=== PATIENT | male | born 1935 | race Caucasian/White ===

== ENCOUNTER 2020-01-03 13:43 | Inpatient (IN) | payer MEDICARE, BC ==
[~2020-01-03] VITALS: Ht 165.1 cm; Wt 71.2 kg
--- NOTE | 2020-01-03 13:46 | NUR ---
PT BROUGHT IN BY [facility] ABLE TO AMBULATE AND TRANSFER TO [facility] , [place] AOX3, ABLE TO SPEAK CLEAR COMPLETE SENTENCES PT IS HERE ON 5150 H DUE TO SI WITH PLAN PT IS CURRENTLY CALM AND COMPLIANT VERY PLEASANT AND COOPERATIVE ERMD AT BEDSIDE FOR HX AND PHYSICAL MONITORED ACCORDINGLY
--- NOTE | 2020-01-03 13:47 | NUR ---
PT DENIES SI/HI CONCERNS AT THIS TIME FREQUENT VISUAL CHECKS DONE SI PREC ON STANDBY
--- NOTE | 2020-01-03 13:49 | NUR ---
PT IS MEDICALLY CLEARED CALL FOR BED DONE PT OK TO ADMIT TO MHU RM 139B DX: FOR MEDICAL CLEARANCE
[2020-01-03] MEDS ORDERED: ATOR10TA PO (14:05)
[2020-01-03] MEDS ORDERED: [UNRECOGNIZED DRUG - CODE] PO (14:05)
--- NOTE | 2020-01-03 14:16 | NUR ---
HAND OFF AND SBAR GIVEN TO BONNIE TOLEDO ([facility])
--- NOTE | 2020-01-03 14:50 | NUR ---
transported to floor Pt admitted to MHU under Fina (Epic) and Reji (Psyche)
[2020-01-03] MEDS ORDERED: MAG HYDROX/AL HYDROX/SIMETH 30 ML LIQUID UDC PO PRN (15:30)
[2020-01-03] MEDS ORDERED: LORAZEPAM 1 MG TABLET PO PRN (15:30)
[2020-01-03] MEDS ORDERED: BLOOD SUGAR DIAGNOSTIC 1 EACH STRIP VI ONE (15:30)
[2020-01-03] MEDS ORDERED: MAGNESIUM HYDROXIDE 30 ML LIQUID UDC PO PRN (15:30)
[2020-01-03] MEDS ORDERED: ACETAMINOPHEN 325 MG TABLET PO PRN (15:30)
[2020-01-03] MEDS ORDERED: TEMAZEPAM 7.5 MG CAPSULE PO PRN (15:30)
--- NOTE | 2020-01-03 15:38 | NUR ---
intake called and states: pt to be admitted under [facility]
[2020-01-03 15:51] VITALS: BP 143/89
--- NOTE | 2020-01-03 17:35 | NUR ---
GPS ADMISSION NOTES: ADMITTING THIS 84Y MALE PATIENT , ON 5150 HOLD FOR DTS AND DTO, PATIENT CALM AND COOPERATIVE UPON ARRIVAL, ABLE TO SIGN DOCUMENTS , PATIENT IS AOX3-4, AMBULATORY, DENIES ANY DISCOMFORT, VS WNL, PATIENT WAS ORIENTED IN THE UNIT , PATIENT IS GUARDED AT THIS TIME, VERBALIZES THAT HE WILL FOLLOW WHATEVER NEEDS TO BE DONE, ADVISEMENT WAS GIVEN , SEEN AND EXAMINED BY DR. GILMAN, WITH ORDERS MADE AND CARRIED OUT,
[2020-01-03] MEDS: SERTRALINE HCL 50 MG TABLET PO SCH (17:43)
[2020-01-03] MEDS ORDERED: AMLO10TA7 PO (17:58)
[2020-01-03] MEDS: ATORVASTATIN 10 MG TABLET PO SCH (18:17)
[2020-01-03 20:49] VITALS: BP 128/85
[2020-01-04 07:30] VITALS: BP 137/78
[2020-01-04] MEDS ORDERED: AMLODIPINE PO SCH (09:00)
[2020-01-04] MEDS ORDERED: ATORVASTATIN PO SCH (09:00)
[2020-01-04] MEDS ORDERED: [UNRECOGNIZED DRUG - OTHER] PO SCH (09:00)
[2020-01-04] MEDS: AMLODIPINE 10 MG TABLET PO SCH (09:01)
[2020-01-04] MEDS: SERTRALINE HCL 50 MG TABLET PO SCH (09:01)
[2020-01-04 10:02] LABS: THYROID STIMULATING HORMONE 1.641 mIU/mL (0.358-3.740)
--- NOTE | 2020-01-04 10:30 | NUR ---
Social Work Initial Discharge Plan: Patient currently resides at [address] [place] [address]; ([phone]) with Akiko. Per patient, upon discharge he would want to return back home. workers' compensation commissioner will work with the patient and the MD regarding appropriate discharge planning. workers' compensation commissioner will form a safe and proper discharge.
--- NOTE | 2020-01-04 11:30 | NUR ---
Social Work Family Contact: farmworker grain contacted patient's Akiko Grant ([phone]) to gather collateral but was unable to reach. This proposal writer left a voicemail to call this proposal writer back.
[2020-01-04 16:00] VITALS: BP 104/54
[2020-01-04] MEDS: ATORVASTATIN 10 MG TABLET PO SCH (17:40)
[2020-01-04 20:55] VITALS: BP 122/79
[2020-01-05 07:30] VITALS: BP 130/79
[2020-01-05] MEDS: AMLODIPINE 10 MG TABLET PO SCH (08:11)
[2020-01-05] MEDS: SERTRALINE HCL 50 MG TABLET PO SCH (08:11)
--- NOTE | 2020-01-05 11:54 | NUR ---
Social Work Family Contact: beadworker attempted to contact patient's Akiko Grant ([phone]), but was unavailable. This automatic typewriter inspector contacted patient's Brother Dwayne ([phone]) and left a voicemail.
--- NOTE | 2020-01-05 14:14 | NUR ---
Social Work Family Contact: relay worker spoke with patient's Akiko Grant ([phone]) who stated that upon discharge patient is welcomed back home and stated that his brother Dwayne ([phone]) will provide transportation upon discharge.
--- NOTE | 2020-01-05 14:28 | NUR ---
Social Work Note: plant production worker contacted [place] [employer] ([phone]) and spoke with embossing press operator Chen who stated that [facility] Puma #[id number] reported that all of the guns have been removed from the house.
--- NOTE | 2020-01-05 15:07 | NUR ---
Social Work Individual Therapy Note: utility worker film processing met with patient for brief counseling. utility worker film processing assessed for patients level of suicidality. Patient denies SI and stated that he was never suicidal and that he prays when he has issues. Patient stated that he "loves his life". This typewriter mechanic encouraged patient to speak to someone if he were to have suicidal thoughts. This typewriter mechanic encouraged to notify charge nurse or to this typewriter mechanic. This typewriter mechanic encouraged patient to talk to a family member as well.
[2020-01-05 16:00] VITALS: BP 135/83
[2020-01-05] MEDS: ATORVASTATIN 10 MG TABLET PO SCH (17:26)
[2020-01-05 20:00] VITALS: BP 142/83
--- NOTE | 2020-01-05 22:00 | NUR ---
received to care, lying in bed, pleasant upon approach. interacts minimally with peers, but able to make his needs known, to staff. denies any SI, or desire to harm others. as of 2199, he appears to be asleep. no distress noted. will continue to monitor closely.
--- NOTE | 2020-01-06 06:00 | NUR ---
slept 7.5 hours, total. continues to sleep. no distress noted.
[2020-01-06 07:30] VITALS: BP 125/84
[2020-01-06] MEDS: AMLODIPINE 10 MG TABLET PO SCH (09:44)
[2020-01-06] MEDS: SERTRALINE HCL 100 MG TABLET PO SCH (09:44)
--- NOTE | 2020-01-06 09:47 | NUR ---
Social Work Note/Substance Abuse Intervention: Patient was provided with a brief substance abuse intervention and referred to [facility] ([phone]), [facility] ([phone]), and [facility] ([phone]).
--- NOTE | 2020-01-06 11:00 | NUR ---
Social Work Family Contact: automobile body worker spoke with patient's Akiko Grant ([phone]) who stated that she would want to speak to the psychiatrist. This designer writer notified Dr. Dobson at 11AM.
--- NOTE | 2020-01-06 15:06 | NUR ---
Social Work Individual Therapy Note: collection systems worker met with patient for brief counseling. collection systems worker assessed for patients level of suicidality. Patient denies SI. He stated that he does not want to talk to this promotion writer and stated that he was never SI. This promotion writer also encouraged patient to alert either this promotion writer or the nursing staff.
[2020-01-06 15:20] VITALS: BP 118/60
[2020-01-06] MEDS: ATORVASTATIN 10 MG TABLET PO SCH (18:22)
[2020-01-06 20:06] VITALS: BP 139/83
--- NOTE | 2020-01-07 06:00 | NUR ---
slept 5.5 hours, total. is now awake. assisted with AM care, and shower. no distress noted.
[2020-01-07 07:30] VITALS: BP 113/77
[2020-01-07 08:11] VITALS: BP 113/77
[2020-01-07] MEDS: SERTRALINE HCL 100 MG TABLET PO SCH (08:11)
[2020-01-07] MEDS: AMLODIPINE 10 MG TABLET PO SCH (08:11)
--- NOTE | 2020-01-07 10:13 | NUR ---
GPS: RECEIVED PATIENT aoX3-4, COMPLIANT WITH MEDICATION, DENIES SI AND HI, PATIENT HAS DC ORDER TODAY TO HOME, PATIENT ARRANGE HIS TRANSPO AND WILL BE UNIVERSITY LIBRARIAN AT 1130 BY HIS FRIEND, IS AWARE
--- NOTE | 2020-01-07 11:42 | NUR ---
patient discharge to home with home medication and prescription , patient signed his papers and was pic up by Giacomo marshall MD aware of the DC
--- NOTE | 2020-01-09 09:37 | NUR ---
Social Work Coordination of Care: supply service worker spoke with Ammon ([phone]) who arranged an appointment with a new psychiatrist at [place] [id number] [facility], [address] [place] [address]; ([phone]) on January 12 at 1PM via telephone. Per Ammon, her team will also follow-up with patient to remind appointment date. This keno writer/runner faxed [facility] notes and progress notes ([phone]).
--- NOTE | 2020-01-09 09:43 | NUR ---
Social Work Coordination of Care: medicine worker contacted patient's doctors office and spoke with Sergio and made an appointment for patient on 01/12/20 at 10:30AM at [address], [place] [address] (P:[phone]) (F:[phone]). This board writer also faxed patient's [facility] notes and medication list.
--- NOTE | 2020-01-09 14:18 | NUR ---
Social Work Discharge Plan: Patient will be discharged home to [address], [place] [address]; ([phone]). Patients brother Dwayne ([phone]) picked patient on 01/07/2020. Patient's Akiko Grant ([phone]) is aware of discharge plan and agreeable. Patient is aware and agreeable with discharge plan. Patient denies suicidal or homicidal ideation. Patient presents with appropriate mood and congruent affect. Patient will be following up with (director aeronautics commission) Dr. Cowan at [address] [facility], [address], [place] [address]; ([phone]). Patient will also be following up with a new psychiatrist at [place] [id number] [facility], [address] [place] [address]; ([phone]) on January 12 at 1PM via telephone and will discuss smoking cessation and address substance abuse dependency. Patient was given resources list of substance abuse programs: [facility] Substance Abuse Self-helpline ; [facility] ([phone]); [facility] ; [facility] ([phone]); [facility] ([phone]); [facility] ([phone])
== END 2020-01-07 11:44 | disposition home or self-care (01) | DRG 881 ==
LOC: ER 13:43 → GPS 14:31
PROVIDERS: ADMIT Psychiatry & Neurology Psychiatry; ATTEND Student in an Organized Health Care Education/Training Program
DX: F32.9 Major depressive disorder, single episode, unspecified (principal); E78.5 Hyperlipidemia, unspecified; F03.90 Unspecified dementia, unspecified severity, without behavioral disturbance, psychotic disturbance, mood disturbance, and anxiety; I10 Essential (primary) hypertension
CPT/HCPCS: 36415; 84443; A4663